=== PATIENT | male | born 1960 | race Caucasian/White ===

== ENCOUNTER 2019-11-02 07:24 | Inpatient (IN) | payer OTHER ==
--- NOTE | 2019-11-01 16:42 | RAD REPORT ---
EXAM DESCRIPTION: RAD - Chest Pa And Lat (2 Views) - 11/01/2019 4:33 pm CLINICAL HISTORY: preop, patient pending hernia repair, prior colon resection, smoking history COMPARISON: CHEST PA AND LAT 2 VIEW dated 10/23/2011 TECHNIQUE: Frontal and lateral views of the chest were obtained. FINDINGS: The lungs are clear of a focal mass or infiltrate. Interstitial pattern matches comparison . Heart size is normal and central vasculature is within normal limits. No pleural effusion or pne umothorax seen. No acute bony finding noted. No aortic abnormality. IMPRESSION: No acute cardiopulmonary process.
[2019-11-01 16:43] LABS: Basophils % 0.6 % (0-1.3); Hematocrit 37.7 % (39.6-49.0); Lymphocytes % 42.8 % (15.3-44.8); RBC Red Blood Cell Count 5.02 M/uL (4.33-5.43)
[2019-11-01 16:50] LABS: Potassium 4.4 mmol/L (3.5-5.1)
[2019-11-01 18:43] LABS: Anisocytosis 1+; Blood Morphology Comment NOTED (NOT SEEN); Platelet Estimate ADEQ; Poikilocytosis 2+; Urine White Blood Cell Casts OK
[2019-11-02] MEDS ORDERED: Ringers Lactate 1,000 ML IV ONE ×2 (07:52→10:51)
[2019-11-02] MEDS ORDERED: CEFAZOLIN/SWI 1gm 1 GM/10 ML SYR ONE (07:52)
[2019-11-02] MEDS ORDERED: propofoL 200 MG/20 ML VIAL IV ONE (09:32)
[2019-11-02] MEDS ORDERED: LIDOCAINE 2% MPF 5 ML VIAL ONE (09:33)
[2019-11-02] MEDS ORDERED: MIDAZOLAM HCL 2 MG/2 ML INJ ONE (09:33)
[2019-11-02] MEDS ORDERED: GLYCOPYRROLATE 0.2 MG/ML SYR ONE ×2 (09:33)
[2019-11-02] MEDS ORDERED: ROCURONIUM 50 MG/5 ML VIAL IV ONE ×2 (09:34→10:45)
[2019-11-02] MEDS ORDERED: FENTANYL CITR 250 MCG/5 ML ONE (09:34)
[2019-11-02] MEDS ORDERED: ONDANSETRON 4 MG/2 ML VIAL ONE ×2 (09:36→11:10)
[2019-11-02] MEDS ORDERED: EPHEDRINE SULF 50 MG/ML VIAL ONE (10:32)
[2019-11-02] MEDS ORDERED: MORPHINE 10 MG/ML VIAL ONE (11:22)
[2019-11-02] MEDS ORDERED: ONDANSETRON 4 MG/2 ML VIAL IV PRN (11:56)
[2019-11-02] MEDS ORDERED: SODIUM CHLORIDE 0.9% 10ML INJ IV PRN (11:56)
--- NOTE | 2019-11-02 11:56 | P.BOP ---
Preoperative diagnosis: incisional ventral hernia, hx of ostomy Postoperative diagnosis: same incarcerated incisional ventral hernia Primary procedure: Exploratory laparotomy, Extensive intrabdominal adhesions Secondary procedure: Open repair of large incisional ventral hernia with mesh lap assisted Consulting Services Associate: Sofia Carmona (Clement) Estimated blood loss: <50cc Specimen: hernia sac Findings: incarcerated omentum Anesthesia: General Complications: None Implants: ventralight ST with echo ps 15.2 x 20.3cm Transferred to: Recovery Room Condition: Good
[2019-11-02] MEDS: HYDROMORPHONE HCL 2 MG/ML inj ONE ×4 (12:16→12:34)
[2019-11-02] MEDS: NA CHLORIDE 0.9% 1,000 ML IV SCH ×2 (13:04→21:59)
[2019-11-02] MEDS: CEFOXITIN/SWI 1gm 1 GM/10 ML SYR IV SCH ×2 (13:05→18:43)
[2019-11-02 14:10] VITALS: BMI 40.6
[2019-11-02] MEDS: HYDROMORPHONE HCL 1 MG/ML INJ IV PRN ×2 (18:44→22:06)
[2019-11-03] MEDS: CEFOXITIN/SWI 1gm 1 GM/10 ML SYR IV SCH (00:54)
[2019-11-03] MEDS: HYDROMORPHONE HCL 1 MG/ML INJ IV PRN ×5 (01:03→17:02)
[2019-11-03 05:51] LABS: Absolute Lymphocytes (CBC) 1.7 K/uL (0.7-4.9); Basophils % 0.2 % (0-1.3); Hematocrit 32.8 % (39.6-49.0); MPV 9.2 fL (7.6-11.3); RBC Red Blood Cell Count 4.36 M/uL (4.33-5.43)
[2019-11-03 05:58] LABS: Potassium 4.2 mmol/L (3.5-5.1)
[2019-11-03] MEDS: HYDROCODONE/APAP 7.5/325 MG TAB PO PRN ×3 (06:30→20:35)
[2019-11-03] MEDS: NA CHLORIDE 0.9% 1,000 ML IV SCH ×3 (08:00→20:28)
[2019-11-03] MEDS: PANTOPRAZOLE 40 MG INJ IVP SCH (09:14)
[2019-11-03 11:32] VITALS: O2SAT 92
--- NOTE | 2019-11-03 16:48 | PN ---
Date of Progress Note: 11/03/2019 Subjective: Status post laparotomy and open repair of an incisional incarcerated ventral hernia with mesh lysis of adhesions. Patient is doing better. Still not tolerating diet. _ ambulate. Afebrile. No shortness of breath. No chest pain. Objective: Chest: Clear. Abdomen: Intact surgical site. Extremities: Good capillary refill. No calf tenderness. Plan: Continue pain control requiring IV medication, abdominal binder, ambulation with PT , incentive spirometry. We are going to advanced diet slowly. HM/MODL Voice ID: [id number] Report ID: [id number]
[2019-11-04] MEDS: HYDROCODONE/APAP 7.5/325 MG TAB PO PRN ×3 (03:31→12:23)
[2019-11-04] MEDS: NA CHLORIDE 0.9% 1,000 ML IV SCH (06:52)
[2019-11-04] MEDS: PANTOPRAZOLE 40 MG INJ IVP SCH (08:43)
--- NOTE | 2019-11-04 12:21 | P.DS ---
Admission Date: 11/03/19 Discharge Date: 11/04/19 Disposition: ROUTINE DISCHARGE Discharge Condition: GOOD Vital Signs/Physical Exam: Temp Pulse Resp BP Pulse Ox 99.4 F 66 18 134/78 98 11/04/19 08:00 11/04/19 08:00 11/04/19 08:42 11/04/19 08:00 11/04/19 08:42 General: Alert, Oriented x3, Cooperative HEENT: PERRLA, EOMI Neck: Supple Respiratory: Normal air movement Cardiovascular: No edema Gastrointestinal: Soft and benign Musculoskeletal: No erythema, No tenderness, No warmth Integumentary: No rashes, No breakdown Neurological: Normal speech Laboratory Data at Discharge: WBC 7.4 K/uL (4.3-10.9) 11/03/19 05:06 Hgb 10.6 g/dL (13.6-17.9) L 11/03/19 05:06 Hct 32.8 % (39.6-49.0) L 11/03/19 05:06 Plt Count 204 K/uL (152-406) 11/03/19 05:06 Sodium 139 mmol/L (136-145) 11/03/19 05:06 Potassium 4.2 mmol/L (3.5-5.1) 11/03/19 05:06 BUN 14 mg/dL (7-18) 11/03/19 05:06 Creatinine 0.97 mg/dL (0.55-1.3) 11/03/19 05:06 Glucose 100 mg/dL (74-106) 11/03/19 05:06 Home Medications: Apixaban [Eliquis] 5 mg PO BID 11/01/19 Cholecalciferol (Vitamin D3) [Vitamin D3] 1,000 unit PO DAILY 11/01/19 Cyanocobalamin (Vitamin B-12) [Vitamin B12] 2,500 mcg PO DAILY 11/01/19 L.acidoph,Paracasei, B.lactis [Probiotic] 2 tab PO DAILY 11/01/19 Magnesium Oxide [Mag 0X Tab] 400 mg PO DAILY 11/01/19 Hydrocodone 7.5/APAP 325 [[place] 7.5/325 mg*] 1 tab PO Q4H PRN #30 tab 11/04/19 Ondansetron HCl [Zofran] 4 mg PO Q6H PRN #10 tablet 11/04/19 Sulfamethoxazole/Trimethoprim [Bactrim Ds Tablet] 1 each PO BID #10 tablet 11/04 New Medications: Hydrocodone 7.5/APAP 325 [[place] 7.5/325 mg*] 1 tab PO Q4H PRN #30 tab PRN Reason: Pain Scale 5-7 (Moderate) Ondansetron HCl [Zofran] 4 mg PO Q6H PRN #10 tablet PRN Reason: Nausea / Vomiting Sulfamethoxazole/Trimethoprim [Bactrim Ds Tablet] 1 each PO BID #10 tablet Patient Discharge Instructions: MAy take showers with dressing off. Abdominal binder Diet: AHA Activity: No lifting more than 10 lbs Followup: Hernandez Arshad MD [ACTIVE - CAN ADMIT] - 1 Week
[2019-11-04 14:31] VITALS: BP 140/78
[2019-11-04 14:43] VITALS: TEMP 99
--- NOTE | 2019-11-05 00:09 | OP ---
Date of Procedure: 11/02/2019 Surgeon: Hernandez Arshad MD Investigative Analyst: YESENIA Hope. Preoperative Diagnoses: Incisional ventral hernia, history of bowel resection and complicated surger y with history of ileostomy. Postoperative Diagnoses: Incarcerated incisional ventral hernia, history of bowel resection and comp licated surgery with history of ileostomy. Procedures: Exploratory laparotomy, extensive intra-abdominal adhesions, open repair of large incisi onal ventral hernia with mesh, laparoscopic assist. Specimen: Hernia sac. Findings: Incarcerated omentum. Large ventral defect. Anesthesia: General plus local. Indications: This is the case of a 58-year-old patient, who had extensive intra-abdominal surgeries with multiple complication as per patient. They were not done in this institution. He ended up with also a right side loop ileostomy that eventually was reversed by his doctors. Now, he comes with a hernia on the ostomy site, tender. He wants that repaired. The benefit, alternatives, risks of repa ir of the incisional large ventral hernia with mesh with laparoscopic assist was fully explained to t he patient, which include, but are not limited to infection, bleeding, damage to adjacent structures, anesthesia complication, recurrence, AL, and even . He also understands this may not relieve a ny symptoms, he might need more than one surgical intervention. He understands the importance of los ing weight and avoiding trauma to the area. He is understanding we will have intention to use mesh i n this place if needed and mesh pros and cons were explained to the patient with all the questions an swered to his satisfaction and he did consent for mesh. We also explained to him we may encounter so me adhesions that area; that if extensive, may have to stay overnight if that is the case and may nee d to do a formal laparotomy. He understood all that. Under those conditions, then he signed the con sent. Description Of Procedure: Patient was brought to the operating room, placed in supine position. Ane sthesia was achieved without complication. Abdominal area was prepped and draped in sterile fashion. Local anesthesia was applied. We made an incision over the previous area what we felt the hernia. We were able to go all the way down to find the hernia sac. We were able to notice the defects pres ent. Once we had a Rudi trocar over the area, we obtained the pneumoperitoneum. We noticed the ex tensive intra-abdominal adhesions. In order for me to continue to be able to repair this, I had to d o 2 things. I had to close the defect and most likely it was going to have to do open since the fasc ial edges had to be and had to be cleaned, but in fact removed all this adhesions from that area and dropped the bowels that was attached to the anterior abdominal wall down without injury. T hen, we proceeded with the surgery and that is what we did. We put 5 mm trocars in the sites of the abdomen and carefully we did extensive lysis of adhesions. It took about an hour just to do adhesion itself. This was done with the help of LigaSure with no enterotomies. Once we had the specific siz e of the defect, we saw clearly now. Then, I proceeded to open skin where that area was and then rem niko the hernia sac, cleaned the fascial edges. We reduced the subcutaneous tissue with scar tissue from around the area to allowed me to put this fascia together, but we had to use a mesh underneath t o reinforce and that will be done laparoscopic again. So, I cleaned the fascial edges, removed the h ernia sac, removed the omentum previously from that area, and then I proceeded to close the defects w ith nylon stitches [id number] interrupted. Once we had all them together before we tied those, we dropped a Ventralight ST mesh 15 x 20 cm to at least overlap the defect by about 3 to 5 cm. Then, we tied all the stitches except 1 so we do not entrap the inflation tubing. At that moment, we obta ined pneumoperitoneum once again. Checked the area of the previous lysis of adhesions, no enterotomi es, no bleeding. Omental was intact. At that moment, then I proceeded to insufflate the balloon and we indeed when we did that the mesh looked nice and flat against the abdominal wall with no bowel in between. We used a capsule fixation device to secure that area. We used at least 2 of those device s just to secure that in place and make sure there is no intestines coming in between. We noticed al so that already we had airproof conditions since no air did not come through meaning the fascia was w ell approximated. After we removed the balloon and then we inspected the area again, we deflated the abdomen under direct visualization and removed the trocars. We tied the last stitches on the fascia , then closed the subcutaneous tissues with 3-0 chromic, and then the skin approximated. The sponge count and instrument counts were correct. I put an abdominal binder in the area. Since the patient has extensive intra-abdominal adhesions and the fascial edges have to be brought together, we expect pain and ileus in this patient. So, he is going to be kept overnight as an inpatient; and then whene david we can control his pain with p.o. medication and he tolerates his diet, then he will be able to d ischarge home in the next 24 to 48 hours. MARIAH/RAJEEV Voice ID: [id number] Report ID: [id number]
== END 2019-11-04 13:38 | disposition home or self-care (01) | DRG 337 ==
LOC: OR 07:24 → 2ND 12:22 → OR 11-03 19:30 → 2ND 11-03 19:31
PROVIDERS: ADMIT Surgery; ATTEND Surgery
PROC: 0WUF0JZ Supplement Abdominal Wall with Synthetic Substitute, Open Approach (ICD-10-PCS; principal; 2019-11-02 09:00)
PROC: 0DN80ZZ Release Small Intestine, Open Approach (ICD-10-PCS; 2019-11-02 09:00)
DX: K43.0 Incisional hernia with obstruction, without gangrene (principal); K66.0 Peritoneal adhesions (postprocedural) (postinfection); F17.210 Nicotine dependence, cigarettes, uncomplicated; Z98.84 Bariatric surgery status
CPT/HCPCS: 36415; 71046; 80048; 85025; 88302; 97116; C9113; J0690; J1170; J2250; J2405; J2704; J3010; J7030; J7120